=== PATIENT | female | born 1955 | race Caucasian/White ===

== ENCOUNTER → 2017-03-03 | Outpatient (CLI) | payer BC | END | disposition home or self-care (01) | LOC: RAD 12:44 | DX: M06.9 Rheumatoid arthritis, unspecified (principal) | CPT/HCPCS: 73110; 73110-RT; 73130-RT ==

== ENCOUNTER → 2017-03-23 | Outpatient (CLI) | payer BC ==
[2017-03-23 18:23] LABS: ADD MAN DIFF? NO
[2017-03-23 18:27] LABS: WHITE BLOOD COUNT 6.8 10^3/ul (4.8-10.8)
[2017-03-23 18:27] LABS: BASOPHILS % 0.6 % (0.0-2.0); EOSINOPHILS # 0.1 10^3/ul (0.0-0.5); EOSINOPHILS % 2.1 % (0.0-7.0); HEMATOCRIT 42.6 % (37.0-47.0); HEMOGLOBIN 14.7 g/dl (12.0-16.0); LYMPHOCYTES # 2.7 10^3/ul (0.8-2.9); LYMPHOCYTES % 39.4 % (15.0-51.0); MEAN CORPUSCULAR HEMOGLOBIN 31.4 pg (29.0-33.0); MEAN CORPUSCULAR HGB CONC 34.5 g/dl (32.0-37.0); MONOCYTE # 0.5 10^3/ul (0.3-0.9); MONOCYTES % 7.5 % (0.0-11.0); NEUTROPHIL # 3.4 10^3/ul (1.6-7.5); NEUTROPHILS % 50.1 % (39.0-77.0); PLATELET COUNT 266 10^3/UL (140-415); RED BLOOD COUNT 4.68 10^6/ul (4.20-5.40); RED CELL DISTRIBUTION WIDTH 11.9 % (11.5-14.5)
[2017-03-23 18:52] LABS: ALANINE AMINOTRANSFERASE 41 IU/L (13-69); ALBUMIN 4.5 g/dl (3.3-4.9); ALKALINE PHOSPHATASE 94 IU/L (42-121); ANION GAP 18 (8-16); ASPARTATE AMINO TRANSFERASE 26 IU/L (15-46); BILIRUBIN,INDIRECT 0.5 mg/dl (0-1.1); BILIRUBIN,TOTAL 0.5 mg/dl (0.2-1.3); BLOOD UREA NITROGEN 13 mg/dl (7-20); C-REACTIVE PROTEIN 0.8 mg/dl (0.0-0.9); CALCIUM 9.4 mg/dl (8.4-10.2); CARBON DIOXIDE 22 mmol/L (21-31); CHLORIDE 106 mmol/L (97-110); CREATININE 0.77 mg/dl (0.44-1.00); GLUCOSE 105 mg/dl (70-220); SODIUM 142 mmol/L (135-144); TOTAL PROTEIN 7.3 g/dl (6.1-8.1)
[2017-03-23 19:34] LABS: ERYTHROCYTE SEDIMENTATION RATE 4 mm/Hr (0-30)
== END | disposition home or self-care (01) ==
LOC: LAB 17:51
DX: L40.50 Arthropathic psoriasis, unspecified (principal)
CPT/HCPCS: 80053; 85025; 85651; 86140

== ENCOUNTER 2017-03-28 14:56 | Observation (INO) | payer BC ==
[2017-03-28] MEDS: INFLIXIMAB 300 MG in SOD CHLORIDE 0.9% 300 ML IV (16:03)
== END 2017-03-28 19:10 | disposition home or self-care (01) ==
LOC: MS1 14:56
DX: L40.50 Arthropathic psoriasis, unspecified (principal)
CPT/HCPCS: G0378

== ENCOUNTER 2017-05-23 13:31 | Observation (INO) | payer BC ==
[2017-05-23] MEDS: INFLIXIMAB 300 MG in SOD CHLORIDE 0.9% 300 ML IV (15:40)
== END 2017-05-23 18:45 | disposition home or self-care (01) ==
LOC: MS1 13:31
DX: L40.50 Arthropathic psoriasis, unspecified (principal)
CPT/HCPCS: 99217

== ENCOUNTER → 2017-06-25 | Outpatient (CLI) | payer BC ==
[2017-06-25 14:27] LABS: ADD MAN DIFF? NO
[2017-06-25 14:53] LABS: ALANINE AMINOTRANSFERASE 38 IU/L (13-69); ALBUMIN 4.6 g/dl (3.3-4.9); ALBUMIN/GLOBULIN RATIO 1.48; ALKALINE PHOSPHATASE 97 IU/L (42-121); ANION GAP 15 (8-16); ASPARTATE AMINO TRANSFERASE 26 IU/L (15-46); BILIRUBIN,INDIRECT 0.4 mg/dl (0-1.1); BILIRUBIN,TOTAL 0.4 mg/dl (0.2-1.3); BLOOD UREA NITROGEN 19 mg/dl (7-20); C-REACTIVE PROTEIN 0.9 mg/dl (0.0-0.9); CALCIUM 9.4 mg/dl (8.4-10.2); CARBON DIOXIDE 27 mmol/L (21-31); CHLORIDE 108 mmol/L (97-110); CREATININE 0.82 mg/dl (0.44-1.00); GLUCOSE 143 mg/dl (70-220); POTASSIUM 4.2 mmol/L (3.5-5.1); SODIUM 146 mmol/L (135-144); TOTAL PROTEIN 7.7 g/dl (6.1-8.1)
[2017-06-25 15:32] LABS: ERYTHROCYTE SEDIMENTATION RATE 10 mm/Hr (0-30)
[2017-06-25 15:39] LABS: WHITE BLOOD COUNT 7.4 10^3/ul (4.8-10.8)
[2017-06-25 15:39] LABS: BASOPHIL # 0.1 10^3/ul (0.0-0.1); BASOPHILS % 0.7 % (0.0-2.0); EOSINOPHILS # 0.2 10^3/ul (0.0-0.5); EOSINOPHILS % 2.6 % (0.0-7.0); HEMOGLOBIN 15.1 g/dl (12.0-16.0); LYMPHOCYTES # 2.7 10^3/ul (0.8-2.9); LYMPHOCYTES % 36.2 % (15.0-51.0); MEAN CORPUSCULAR HEMOGLOBIN 30.8 pg (29.0-33.0); MEAN CORPUSCULAR HGB CONC 34.3 g/dl (32.0-37.0); MEAN CORPUSCULAR VOLUME 89.6 fl (82.0-101.0); MEAN PLATELET VOLUME 9.7 fl (7.4-10.4); MONOCYTE # 0.6 10^3/ul (0.3-0.9); MONOCYTES % 7.5 % (0.0-11.0); NEUTROPHIL # 3.9 10^3/ul (1.6-7.5); NEUTROPHILS % 52.7 % (39.0-77.0); PLATELET COUNT 267 10^3/UL (140-415); RED BLOOD COUNT 4.91 10^6/ul (4.20-5.40); RED CELL DISTRIBUTION WIDTH 12.3 % (11.5-14.5)
== END | disposition home or self-care (01) ==
LOC: LAB 13:31
DX: L40.50 Arthropathic psoriasis, unspecified (principal)
CPT/HCPCS: 80053; 82306; 85025; 85651; 86140

== ENCOUNTER → 2017-07-07 | Outpatient (CLI) | payer BC | END | disposition home or self-care (01) | LOC: RAD 12:44 | DX: J18.9 Pneumonia, unspecified organism (principal) | CPT/HCPCS: 71046 ==

== ENCOUNTER 2017-07-15 12:04 | Inpatient (IN) | payer BC ==
[2017-07-15] MEDS ORDERED: ACETAMINOPHEN 325 MG TAB PO (12:30)
[2017-07-15] MEDS ORDERED: ONDANSETRON 4 MG INJ IV ×2 (12:30→14:30)
[2017-07-15 13:01] LABS: ADD MAN DIFF? NO
[2017-07-15 13:06] LABS: BASOPHIL # 0.1 10^3/ul (0.0-0.1); BASOPHILS % 0.9 % (0.0-2.0); EOSINOPHILS # 0.2 10^3/ul (0.0-0.5); EOSINOPHILS % 2.2 % (0.0-7.0); HEMATOCRIT 42.3 % (37.0-47.0); HEMOGLOBIN 14.5 g/dl (12.0-16.0); LYMPHOCYTES # 2.7 10^3/ul (0.8-2.9); LYMPHOCYTES % 36.4 % (15.0-51.0); MEAN CORPUSCULAR HEMOGLOBIN 30.8 pg (29.0-33.0); MEAN CORPUSCULAR HGB CONC 34.3 g/dl (32.0-37.0); MEAN CORPUSCULAR VOLUME 89.8 fl (82.0-101.0); MEAN PLATELET VOLUME 9.4 fl (7.4-10.4); MONOCYTE # 0.5 10^3/ul (0.3-0.9); MONOCYTES % 7.2 % (0.0-11.0); NEUTROPHIL # 3.9 10^3/ul (1.6-7.5); NEUTROPHILS % 53.2 % (39.0-77.0); PLATELET COUNT 255 10^3/UL (140-415); RED BLOOD COUNT 4.71 10^6/ul (4.20-5.40); RED CELL DISTRIBUTION WIDTH 12.5 % (11.5-14.5)
[2017-07-15 13:06] LABS: WHITE BLOOD COUNT 7.4 10^3/ul (4.8-10.8)
[2017-07-15 13:26] LABS: ANION GAP 16 (8-16); BLOOD UREA NITROGEN 14 mg/dl (7-20); CALCIUM 9.8 mg/dl (8.4-10.2); CARBON DIOXIDE 21 mmol/L (21-31); CHLORIDE 111 mmol/L (97-110); CREATININE 0.84 mg/dl (0.44-1.00); GLUCOSE 110 mg/dl (70-220); POTASSIUM 3.9 mmol/L (3.5-5.1); SODIUM 144 mmol/L (135-144)
[2017-07-15 13:27] LABS: LACTIC ACID 1.8 mmol/L (0.5-2.0)
[2017-07-15] MEDS: LEVOFLOXACIN 500MG/D5W (PMX) 100 ML IV (13:29)
[2017-07-15] MEDS: IPRATROPIUM (NEB) 0.5 MG/2.5 ML AMP HHN (13:43)
[2017-07-15] MEDS: ALBUTEROL 0.083% (NEB) 2.5 MG/3 ML AMP HHN ×4 (13:43→23:58)
[2017-07-15] MEDS ORDERED: ZOLPIDEM 5 MG TAB PO (14:30)
[2017-07-15] MEDS ORDERED: DOCUSATE SODIUM 100 MG CAP PO (14:30)
[2017-07-15] MEDS ORDERED: NACL 0.9% 3 ML SYG IV (14:30)
[2017-07-15] MEDS: DEXTROSE 5%-0.45% NACL 1,000 ML IV (16:00)
[2017-07-15] MEDS: LEVOFLOXACIN 500MG/D5W (PMX) 100 ML IVPB (16:00)
[2017-07-15] MEDS: METHYLPREDNISOLONE 40 MG INJ IV (21:34)
[2017-07-15] MEDS ORDERED: ALBUTEROL 0.083% (NEB) 2.5 MG/3 ML AMP HHN (22:00)
[2017-07-15 23:11] LABS: LACTIC ACID 3.3 mmol/L (0.5-2.0)
[2017-07-16] MEDS: DEXTROSE 5%-0.45% NACL 1,000 ML IV (03:30)
[2017-07-16] MEDS: ALBUTEROL 0.083% (NEB) 2.5 MG/3 ML AMP HHN ×5 (05:26→20:53)
[2017-07-16] MEDS: PANTOPRAZOLE (EC) 40 MG TAB PO (05:50)
[2017-07-16] MEDS: METHYLPREDNISOLONE 40 MG INJ IV ×3 (05:50→22:03)
[2017-07-16 06:01] LABS: ADD MAN DIFF? NO
[2017-07-16 06:06] LABS: WHITE BLOOD COUNT 6.2 10^3/ul (4.8-10.8)
[2017-07-16 06:06] LABS: BASOPHILS % 0.2 % (0.0-2.0); HEMATOCRIT 43.9 % (37.0-47.0); HEMOGLOBIN 14.7 g/dl (12.0-16.0); LYMPHOCYTES # 0.8 10^3/ul (0.8-2.9); LYMPHOCYTES % 12.7 % (15.0-51.0); MEAN CORPUSCULAR HEMOGLOBIN 30.6 pg (29.0-33.0); MEAN CORPUSCULAR HGB CONC 33.5 g/dl (32.0-37.0); MEAN CORPUSCULAR VOLUME 91.5 fl (82.0-101.0); MEAN PLATELET VOLUME 9.3 fl (7.4-10.4); MONOCYTE # 0.1 10^3/ul (0.3-0.9); MONOCYTES % 0.8 % (0.0-11.0); NEUTROPHIL # 5.3 10^3/ul (1.6-7.5); NEUTROPHILS % 85.7 % (39.0-77.0); PLATELET COUNT 255 10^3/UL (140-415); RED CELL DISTRIBUTION WIDTH 12.6 % (11.5-14.5)
[2017-07-16 06:28] LABS: ALANINE AMINOTRANSFERASE 30 IU/L (13-69); ALBUMIN 4.3 g/dl (3.3-4.9); ALBUMIN/GLOBULIN RATIO 1.38; ALKALINE PHOSPHATASE 83 IU/L (42-121); ANION GAP 20 (8-16); ASPARTATE AMINO TRANSFERASE 28 IU/L (15-46); BILIRUBIN,INDIRECT 0.4 mg/dl (0-1.1); BILIRUBIN,TOTAL 0.4 mg/dl (0.2-1.3); BLOOD UREA NITROGEN 6 mg/dl (7-20); CALCIUM 9.8 mg/dl (8.4-10.2); CARBON DIOXIDE 20 mmol/L (21-31); CHLORIDE 112 mmol/L (97-110); CHOL/HDL RATIO 3.5 RATIO; CHOLESTEROL 179 mg/dl (100-200); CREATININE 0.65 mg/dl (0.44-1.00); GLUCOSE 205 mg/dl (70-220); HDL CHOLESTEROL 51 mg/dl (35-98); LDL CHOLESTEROL,CALCULATED 113 mg/dl; MAGNESIUM 1.9 mg/dl (1.7-2.5); POTASSIUM 4.5 mmol/L (3.5-5.1); SODIUM 147 mmol/L (135-144); TOTAL PROTEIN 7.4 g/dl (6.1-8.1); TRIGLYCERIDES 73 mg/dl (0-149)
[2017-07-16] MEDS: ENOXAPARIN 30 MG/0.3 ML SYG SC (09:59)
[2017-07-16] MEDS: SOD CHLORIDE 0.45% 1,000 ML IV (13:49)
[2017-07-16] MEDS: PROMETHAZINE/CODEINE 5ML CUP PO (13:49)
[2017-07-16] MEDS: GUAIFENESIN/DM (SR) TAB PO ×2 (15:02→20:43)
[2017-07-17] MEDS: ALBUTEROL 0.083% (NEB) 2.5 MG/3 ML AMP HHN ×6 (01:00→20:52)
[2017-07-17] MEDS: SOD CHLORIDE 0.45% 1,000 ML IV ×2 (01:15→13:54)
[2017-07-17] MEDS: METHYLPREDNISOLONE 40 MG INJ IV (05:34)
[2017-07-17] MEDS: PANTOPRAZOLE (EC) 40 MG TAB PO (05:34)
[2017-07-17] MEDS: ACETAMINOPHEN 325 MG TAB PO (05:43)
[2017-07-17 06:29] LABS: ADD MAN DIFF? NO
[2017-07-17 06:31] LABS: BASOPHILS % 0.1 % (0.0-2.0); HEMOGLOBIN 13.7 g/dl (12.0-16.0); LYMPHOCYTES # 1.7 10^3/ul (0.8-2.9); LYMPHOCYTES % 9.2 % (15.0-51.0); MEAN CORPUSCULAR HEMOGLOBIN 30.4 pg (29.0-33.0); MEAN CORPUSCULAR HGB CONC 32.6 g/dl (32.0-37.0); MEAN CORPUSCULAR VOLUME 93.1 fl (82.0-101.0); MEAN PLATELET VOLUME 9.5 fl (7.4-10.4); MONOCYTE # 0.6 10^3/ul (0.3-0.9); MONOCYTES % 3.3 % (0.0-11.0); NEUTROPHIL # 15.8 10^3/ul (1.6-7.5); NEUTROPHILS % 86.6 % (39.0-77.0); PLATELET COUNT 265 10^3/UL (140-415); RED BLOOD COUNT 4.51 10^6/ul (4.20-5.40); RED CELL DISTRIBUTION WIDTH 13.3 % (11.5-14.5)
[2017-07-17 06:31] LABS: WHITE BLOOD COUNT 18.3 10^3/ul (4.8-10.8)
[2017-07-17 07:01] LABS: ANION GAP 16 (8-16); BLOOD UREA NITROGEN 13 mg/dl (7-20); CALCIUM 9.5 mg/dl (8.4-10.2); CARBON DIOXIDE 22 mmol/L (21-31); CHLORIDE 111 mmol/L (97-110); CREATININE 0.77 mg/dl (0.44-1.00); GLUCOSE 189 mg/dl (70-220); POTASSIUM 4.3 mmol/L (3.5-5.1); SODIUM 145 mmol/L (135-144)
[2017-07-17] MEDS: GUAIFENESIN/DM (SR) TAB PO ×2 (10:13→20:58)
[2017-07-17] MEDS: ENOXAPARIN 30 MG/0.3 ML SYG SC (10:15)
[2017-07-18] MEDS: SOD CHLORIDE 0.45% 1,000 ML IV ×2 (00:21→12:56)
[2017-07-18] MEDS: ALBUTEROL 0.083% (NEB) 2.5 MG/3 ML AMP HHN ×4 (01:00→13:06)
[2017-07-18 06:05] LABS: ADD MAN DIFF? NO; BASOPHILS % 0.2 % (0.0-2.0); EOSINOPHILS % 0.2 % (0.0-7.0); HEMATOCRIT 39.3 % (37.0-47.0); HEMOGLOBIN 12.9 g/dl (12.0-16.0); LYMPHOCYTES # 3.6 10^3/ul (0.8-2.9); LYMPHOCYTES % 27.9 % (15.0-51.0); MEAN CORPUSCULAR HEMOGLOBIN 30.6 pg (29.0-33.0); MEAN CORPUSCULAR HGB CONC 32.8 g/dl (32.0-37.0); MEAN CORPUSCULAR VOLUME 93.1 fl (82.0-101.0); MEAN PLATELET VOLUME 9.6 fl (7.4-10.4); MONOCYTE # 0.8 10^3/ul (0.3-0.9); MONOCYTES % 6.2 % (0.0-11.0); NEUTROPHIL # 8.4 10^3/ul (1.6-7.5); NEUTROPHILS % 65.1 % (39.0-77.0); PLATELET COUNT 225 10^3/UL (140-415); RED BLOOD COUNT 4.22 10^6/ul (4.20-5.40); RED CELL DISTRIBUTION WIDTH 13.3 % (11.5-14.5)
[2017-07-18 06:05] LABS: WHITE BLOOD COUNT 12.8 10^3/ul (4.8-10.8)
[2017-07-18] MEDS: PANTOPRAZOLE (EC) 40 MG TAB PO (06:39)
[2017-07-18 06:41] LABS: ANION GAP 10 (8-16); BLOOD UREA NITROGEN 25 mg/dl (7-20); CALCIUM 8.8 mg/dl (8.4-10.2); CARBON DIOXIDE 26 mmol/L (21-31); CHLORIDE 110 mmol/L (97-110); CREATININE 0.86 mg/dl (0.44-1.00); GLUCOSE 114 mg/dl (70-220); POTASSIUM 4.1 mmol/L (3.5-5.1); SODIUM 142 mmol/L (135-144)
[2017-07-18] MEDS: GUAIFENESIN/DM (SR) TAB PO (09:57)
[2017-07-18] MEDS: METHYLPREDNISOLONE 40 MG INJ IV (09:57)
[2017-07-18] MEDS: PROMETHAZINE/CODEINE 5ML CUP PO (09:58)
[2017-07-18] MEDS: ENOXAPARIN 30 MG/0.3 ML SYG SC (10:00)
[2017-07-22 13:26] LABS: PROCALCITONIN <0.10 ng/mL (<0.10)
== END 2017-07-18 18:40 | disposition home or self-care (01) | DRG 203 ==
LOC: E/R 12:04 → MS2 12:09
DX: J20.8 Acute bronchitis due to other specified organisms (principal); L40.50 Arthropathic psoriasis, unspecified; J45.50 Severe persistent asthma, uncomplicated; M06.9 Rheumatoid arthritis, unspecified; Z90.49 Acquired absence of other specified parts of digestive tract
CPT/HCPCS: 36415; 71045; 71250; 80048; 80053; 80061; 83605; 83735; 84145; 85025; 86606; 86635; 87040; 87070; 94640; 94664; 96374; 99285-25

== ENCOUNTER 2017-08-20 20:51 | Emergency (ER) | payer BC ==
[2017-08-20] MEDS: IPRATROPIUM (NEB) 0.5 MG/2.5 ML AMP INH (21:41)
[2017-08-20] MEDS: ALBUTEROL 0.5% (NEB) 2.5 MG/0.5 ML AMP INH (21:41)
[2017-08-20] MEDS: MAGNESIUM SULFATE 2 GM/50 ML 50 ML IVPB (22:15)
[2017-08-20] MEDS: METHYLPREDNISOLONE 125 MG INJ IV (22:15)
[2017-08-20 22:30] LABS: ADD MAN DIFF? NO
[2017-08-20 22:35] LABS: BASOPHIL # 0.1 10^3/ul (0.0-0.1); BASOPHILS % 0.7 % (0.0-2.0); EOSINOPHILS # 0.1 10^3/ul (0.0-0.5); EOSINOPHILS % 1.1 % (0.0-7.0); HEMATOCRIT 41.2 % (37.0-47.0); HEMOGLOBIN 13.9 g/dl (12.0-16.0); LYMPHOCYTES # 4.7 10^3/ul (0.8-2.9); LYMPHOCYTES % 44.3 % (15.0-51.0); MEAN CORPUSCULAR HEMOGLOBIN 31.4 pg (29.0-33.0); MEAN CORPUSCULAR HGB CONC 33.7 g/dl (32.0-37.0); MEAN PLATELET VOLUME 9.3 fl (7.4-10.4); MONOCYTE # 0.7 10^3/ul (0.3-0.9); MONOCYTES % 6.8 % (0.0-11.0); NEUTROPHIL # 4.9 10^3/ul (1.6-7.5); NEUTROPHILS % 46.4 % (39.0-77.0); PLATELET COUNT 244 10^3/UL (140-415); RED BLOOD COUNT 4.43 10^6/ul (4.20-5.40); RED CELL DISTRIBUTION WIDTH 13.1 % (11.5-14.5)
[2017-08-20 22:35] LABS: WHITE BLOOD COUNT 10.6 10^3/ul (4.8-10.8)
[2017-08-20 22:51] LABS: ALANINE AMINOTRANSFERASE 35 IU/L (13-69); ALBUMIN 3.9 g/dl (3.3-4.9); ALBUMIN/GLOBULIN RATIO 1.56; ALKALINE PHOSPHATASE 78 IU/L (42-121); ANION GAP 12 (8-16); ASPARTATE AMINO TRANSFERASE 20 IU/L (15-46); BILIRUBIN,INDIRECT 0.6 mg/dl (0-1.1); BILIRUBIN,TOTAL 0.6 mg/dl (0.2-1.3); BLOOD UREA NITROGEN 29 mg/dl (7-20); CARBON DIOXIDE 25 mmol/L (21-31); CHLORIDE 109 mmol/L (97-110); GLUCOSE 95 mg/dl (70-220); LIPASE 196 U/L (23-300); POTASSIUM 3.9 mmol/L (3.5-5.1); SODIUM 142 mmol/L (135-144); TOTAL PROTEIN 6.4 g/dl (6.1-8.1)
== END 2017-08-21 00:22 | disposition home or self-care (01) ==
LOC: FTE 08-21 00:22
DX: R06.2 Wheezing (principal)
CPT/HCPCS: 36415; 71045; 80053; 83690; 85025; 94644; 96374; 96375; 99284-25

== ENCOUNTER → 2017-09-07 | Outpatient (CLI) | payer BC ==
[2017-09-07 18:55] LABS: ADD MAN DIFF? NO
[2017-09-07 19:07] LABS: WHITE BLOOD COUNT 6.6 10^3/ul (4.8-10.8)
[2017-09-07 19:07] LABS: BASOPHIL # 0.1 10^3/ul (0.0-0.1); BASOPHILS % 0.8 % (0.0-2.0); EOSINOPHILS # 0.2 10^3/ul (0.0-0.5); EOSINOPHILS % 3.5 % (0.0-7.0); HEMATOCRIT 41.5 % (37.0-47.0); HEMOGLOBIN 13.9 g/dl (12.0-16.0); LYMPHOCYTES # 2.4 10^3/ul (0.8-2.9); LYMPHOCYTES % 36.3 % (15.0-51.0); MEAN CORPUSCULAR HEMOGLOBIN 31.1 pg (29.0-33.0); MEAN CORPUSCULAR HGB CONC 33.5 g/dl (32.0-37.0); MEAN CORPUSCULAR VOLUME 92.8 fl (82.0-101.0); MEAN PLATELET VOLUME 9.1 fl (7.4-10.4); MONOCYTE # 0.6 10^3/ul (0.3-0.9); MONOCYTES % 8.5 % (0.0-11.0); NEUTROPHIL # 3.4 10^3/ul (1.6-7.5); NEUTROPHILS % 50.7 % (39.0-77.0); PLATELET COUNT 262 10^3/UL (140-415); RED BLOOD COUNT 4.47 10^6/ul (4.20-5.40)
[2017-09-07 19:17] LABS: ALANINE AMINOTRANSFERASE 48 IU/L (13-69); ALBUMIN 4.3 g/dl (3.3-4.9); ALBUMIN/GLOBULIN RATIO 1.43; ALKALINE PHOSPHATASE 89 IU/L (42-121); ANION GAP 13 (8-16); ASPARTATE AMINO TRANSFERASE 27 IU/L (15-46); BILIRUBIN,INDIRECT 0.7 mg/dl (0-1.1); BILIRUBIN,TOTAL 0.7 mg/dl (0.2-1.3); BLOOD UREA NITROGEN 15 mg/dl (7-20); CALCIUM 9.3 mg/dl (8.4-10.2); CARBON DIOXIDE 25 mmol/L (21-31); CHLORIDE 109 mmol/L (97-110); CREATININE 0.71 mg/dl (0.44-1.00); GLUCOSE 94 mg/dl (70-220); POTASSIUM 4.4 mmol/L (3.5-5.1); SODIUM 143 mmol/L (135-144); TOTAL PROTEIN 7.3 g/dl (6.1-8.1)
[2017-09-07 20:05] LABS: ERYTHROCYTE SEDIMENTATION RATE 10 mm/Hr (0-30)
== END | disposition home or self-care (01) ==
LOC: LAB 18:31
DX: L40.50 Arthropathic psoriasis, unspecified (principal)
CPT/HCPCS: 80053; 82306; 85025; 85651; 86140

== ENCOUNTER 2017-09-12 13:22 | Observation (INO) | payer BC ==
[2017-09-12] MEDS: INFLIXIMAB 300 MG in SOD CHLORIDE 0.9% 300 ML IV (15:33)
== END 2017-09-12 21:28 | disposition home or self-care (01) ==
LOC: MS1 13:22
DX: L40.50 Arthropathic psoriasis, unspecified (principal)
CPT/HCPCS: G0378

== ENCOUNTER 2017-10-02 11:55 | Emergency (ER) | payer BC ==
[2017-10-02 12:49] LABS: ADD MAN DIFF? NO
[2017-10-02 12:51] LABS: BASOPHIL # 0.1 10^3/ul (0.0-0.1); BASOPHILS % 0.9 % (0.0-2.0); EOSINOPHILS # 0.2 10^3/ul (0.0-0.5); EOSINOPHILS % 2.5 % (0.0-7.0); HEMATOCRIT 42.7 % (37.0-47.0); HEMOGLOBIN 14.3 g/dl (12.0-16.0); LYMPHOCYTES # 2.7 10^3/ul (0.8-2.9); LYMPHOCYTES % 39.6 % (15.0-51.0); MEAN CORPUSCULAR HEMOGLOBIN 30.6 pg (29.0-33.0); MEAN CORPUSCULAR HGB CONC 33.5 g/dl (32.0-37.0); MEAN CORPUSCULAR VOLUME 91.2 fl (82.0-101.0); MEAN PLATELET VOLUME 9.5 fl (7.4-10.4); MONOCYTE # 0.5 10^3/ul (0.3-0.9); MONOCYTES % 6.9 % (0.0-11.0); NEUTROPHIL # 3.4 10^3/ul (1.6-7.5); PLATELET COUNT 247 10^3/UL (140-415); RED BLOOD COUNT 4.68 10^6/ul (4.20-5.40); RED CELL DISTRIBUTION WIDTH 12.8 % (11.5-14.5)
[2017-10-02 12:51] LABS: WHITE BLOOD COUNT 6.8 10^3/ul (4.8-10.8)
[2017-10-02] MEDS: MECLIZINE 12.5 MG TAB PO (12:51)
[2017-10-02] MEDS: ONDANSETRON 4 MG INJ IV (12:52)
[2017-10-02] MEDS: SOD CHLORIDE 0.9% 1,000 ML IV (12:52)
[2017-10-02 13:09] LABS: ANION GAP 12 (8-16); BLOOD UREA NITROGEN 11 mg/dl (7-20); CALCIUM 9.3 mg/dl (8.4-10.2); CARBON DIOXIDE 22 mmol/L (21-31); CHLORIDE 114 mmol/L (97-110); CREATININE 0.66 mg/dl (0.44-1.00); GLUCOSE 93 mg/dl (70-220); SODIUM 144 mmol/L (135-144)
[2017-10-02 13:11] LABS: PROTIME 12.2 Sec (11.9-14.9)
[2017-10-02 13:21] LABS: TROPONIN-I < 0.010 ng/ml (0.000-0.120)
[2017-10-02 15:36] LABS: ADD UMIC YES; UR ASCORBIC ACID NEGATIVE (NEGATIVE); UR BILIRUBIN (Dip) NEGATIVE (NEGATIVE); UR BLOOD (Dip) NEGATIVE (NEGATIVE); UR CLARITY CLEAR (CLEAR); UR COLOR YELLOW (YELLOW); UR GLUCOSE (Dip) NEGATIVE (NEGATIVE); UR KETONES (Dip) NEGATIVE (NEGATIVE); UR LEUKOCYTE ESTERASE (Dip) 1+ Leu/ul (NEGATIVE); UR MUCUS MODERATE /HPF (NONE SEEN); UR NITRITE (Dip) NEGATIVE (NEGATIVE); UR RBC 1 /HPF (0-5); UR SPECIFIC GRAVITY (Dip) 1.018 (1.003-1.030); UR SQUAMOUS EPITHELIAL CELL FEW /HPF (FEW); UR TOTAL PROTEIN (Dip) NEGATIVE (NEGATIVE); UR UROBILINOGEN (Dip) NEGATIVE (NEGATIVE); UR WBC 8 /HPF (0-5)
== END 2017-10-02 18:11 | disposition home or self-care (01) ==
LOC: E/R 11:55
DX: R42 Dizziness and giddiness (principal); R40.2252 Coma scale, best verbal response, oriented, at arrival to emergency department; R11.2 Nausea with vomiting, unspecified; R19.7 Diarrhea, unspecified; R10.9 Unspecified abdominal pain; R40.2142 Coma scale, eyes open, spontaneous, at arrival to emergency department; R40.2362 Coma scale, best motor response, obeys commands, at arrival to emergency department
CPT/HCPCS: 36415; 71045; 80048; 81001; 84484; 85025; 85610; 93005; 96374; 99285-25

== ENCOUNTER 2017-10-24 13:44 | Observation (INO) | payer BC ==
[~2017-10-24 13:44] MED LIST: INFLIXIMAB 300 MG in SOD CHLORIDE 0.9% 300 ML IV
[2017-10-24] MEDS: INFLIXIMAB 300 MG in SOD CHLORIDE 0.9% 300 ML IV (15:44)
== END 2017-10-24 19:00 | disposition home or self-care (01) ==
LOC: MS1 13:44
DX: L40.50 Arthropathic psoriasis, unspecified (principal)
CPT/HCPCS: G0378

== ENCOUNTER → 2017-12-01 | Outpatient (CLI) | payer BC ==
[2017-12-01 16:29] LABS: ADD MAN DIFF? NO
[2017-12-01 16:31] LABS: BASOPHILS % 0.6 % (0.0-2.0); EOSINOPHILS # 0.1 10^3/ul (0.0-0.5); EOSINOPHILS % 1.7 % (0.0-7.0); HEMATOCRIT 45.1 % (37.0-47.0); LYMPHOCYTES # 2.3 10^3/ul (0.8-2.9); LYMPHOCYTES % 31.4 % (15.0-51.0); MEAN CORPUSCULAR HEMOGLOBIN 30.6 pg (29.0-33.0); MEAN CORPUSCULAR HGB CONC 33.3 g/dl (32.0-37.0); MEAN PLATELET VOLUME 9.3 fl (7.4-10.4); MONOCYTE # 0.4 10^3/ul (0.3-0.9); NEUTROPHIL # 4.3 10^3/ul (1.6-7.5); NEUTROPHILS % 60.2 % (39.0-77.0); PLATELET COUNT 280 10^3/UL (140-415); RED CELL DISTRIBUTION WIDTH 11.9 % (11.5-14.5)
[2017-12-01 16:31] LABS: WHITE BLOOD COUNT 7.2 10^3/ul (4.8-10.8)
[2017-12-01 16:49] LABS: ALANINE AMINOTRANSFERASE 42 IU/L (13-69); ALBUMIN 4.1 g/dl (3.3-4.9); ALKALINE PHOSPHATASE 94 IU/L (42-121); ANION GAP 13 (8-16); ASPARTATE AMINO TRANSFERASE 31 IU/L (15-46); BILIRUBIN,INDIRECT 0.6 mg/dl (0-1.1); BILIRUBIN,TOTAL 0.6 mg/dl (0.2-1.3); BLOOD UREA NITROGEN 13 mg/dl (7-20); CARBON DIOXIDE 27 mmol/L (21-31); CHLORIDE 106 mmol/L (97-110); CREATININE 0.75 mg/dl (0.44-1.00); GLUCOSE 94 mg/dl (70-220); POTASSIUM 4.1 mmol/L (3.5-5.1); SODIUM 142 mmol/L (135-144); TOTAL PROTEIN 7.5 g/dl (6.1-8.1)
[2017-12-01 17:17] LABS: C-REACTIVE PROTEIN HIGH SENSI 0.17 mg/dl (0.00-0.74)
[2017-12-01 17:40] LABS: ERYTHROCYTE SEDIMENTATION RATE 4 mm/Hr (0-30)
== END | disposition home or self-care (01) ==
LOC: LAB 16:05
DX: L40.50 Arthropathic psoriasis, unspecified (principal)
CPT/HCPCS: 80053; 82306; 85025; 85651; 86140

== ENCOUNTER → 2017-12-04 | Outpatient (CLI) | payer BC ==
[~2017-12-04] MED LIST changes: +ALBUTEROL 0.083% (NEB) 2.5 MG/3 ML AMP; -INFLIXIMAB 300 MG in SOD CHLORIDE 0.9% 300 ML IV
== END | disposition home or self-care (01) ==
LOC: PUL 12:50
DX: J45.909 Unspecified asthma, uncomplicated (principal)
CPT/HCPCS: 94060; 94664; 94726; 94729

== ENCOUNTER 2017-12-05 13:35 | Observation (INO) | payer BC ==
[2017-12-05] MEDS: INFLIXIMAB 300 MG in SOD CHLORIDE 0.9% 300 ML IV (15:39)
== END 2017-12-05 19:30 | disposition home or self-care (01) ==
LOC: MS1 13:35
DX: L40.50 Arthropathic psoriasis, unspecified (principal)
CPT/HCPCS: G0378

== ENCOUNTER → 2017-12-07 | Outpatient (CLI) | payer BC ==
[2017-12-07 13:53] LABS: ADD MAN DIFF? NO
[2017-12-07 13:56] LABS: BASOPHILS % 0.4 % (0.0-2.0); EOSINOPHILS # 0.1 10^3/ul (0.0-0.5); EOSINOPHILS % 0.7 % (0.0-7.0); HEMATOCRIT 44.7 % (37.0-47.0); HEMOGLOBIN 15.3 g/dl (12.0-16.0); LYMPHOCYTES # 1.9 10^3/ul (0.8-2.9); LYMPHOCYTES % 19.2 % (15.0-51.0); MEAN CORPUSCULAR HGB CONC 34.2 g/dl (32.0-37.0); MEAN CORPUSCULAR VOLUME 90.5 fl (82.0-101.0); MEAN PLATELET VOLUME 9.4 fl (7.4-10.4); MONOCYTE # 0.6 10^3/ul (0.3-0.9); MONOCYTES % 6.5 % (0.0-11.0); NEUTROPHIL # 7.2 10^3/ul (1.6-7.5); NEUTROPHILS % 72.9 % (39.0-77.0); PLATELET COUNT 268 10^3/UL (140-415); RED BLOOD COUNT 4.94 10^6/ul (4.20-5.40); RED CELL DISTRIBUTION WIDTH 11.9 % (11.5-14.5)
[2017-12-07 13:56] LABS: WHITE BLOOD COUNT 9.8 10^3/ul (4.8-10.8)
[2017-12-07 14:13] LABS: ALANINE AMINOTRANSFERASE 32 IU/L (13-69); ALBUMIN 4.6 g/dl (3.3-4.9); ALBUMIN/GLOBULIN RATIO 1.48; ALKALINE PHOSPHATASE 101 IU/L (42-121); AMYLASE 102 U/L (11-123); ANION GAP 11 (8-16); ASPARTATE AMINO TRANSFERASE 25 IU/L (15-46); BILIRUBIN,INDIRECT 0.6 mg/dl (0-1.1); BILIRUBIN,TOTAL 0.6 mg/dl (0.2-1.3); BLOOD UREA NITROGEN 11 mg/dl (7-20); CALCIUM 11.4 mg/dl (8.4-10.2); CARBON DIOXIDE 28 mmol/L (21-31); CHLORIDE 105 mmol/L (97-110); CREATININE 0.68 mg/dl (0.44-1.00); GLUCOSE 106 mg/dl (70-220); LIPASE 58 U/L (23-300); POTASSIUM 4.4 mmol/L (3.5-5.1); SODIUM 140 mmol/L (135-144); TOTAL PROTEIN 7.7 g/dl (6.1-8.1)
== END | disposition home or self-care (01) ==
LOC: LAB 13:15
DX: K29.00 Acute gastritis without bleeding (principal); K85.90 Acute pancreatitis without necrosis or infection, unspecified
CPT/HCPCS: 80053; 82150; 83690; 85025

== ENCOUNTER 2018-01-11 18:05 | Emergency (ER) | payer BC ==
[2018-01-11] MEDS: DIPHTH/TET/ACEL PERTUSS (ADULT) 0.5 ML VIAL IM* (18:47)
== END 2018-01-11 19:34 | disposition home or self-care (01) ==
LOC: FTE 18:05
DX: S61.216A Laceration without foreign body of right little finger without damage to nail, initial encounter (principal); W26.8XXA Contact with other sharp object(s), not elsewhere classified, initial encounter; Y92.9 Unspecified place or not applicable; Z23 Encounter for immunization
CPT/HCPCS: 12001; 90471; 90715; 99283-25

== ENCOUNTER → 2018-01-11 | Outpatient (CLI) | payer BC ==
[2018-01-11 16:38] LABS: ADD MAN DIFF? NO
[2018-01-11 16:41] LABS: BASOPHIL # 0.1 10^3/ul (0.0-0.1); EOSINOPHILS # 0.2 10^3/ul (0.0-0.5); EOSINOPHILS % 3.1 % (0.0-7.0); HEMATOCRIT 45.2 % (37.0-47.0); LYMPHOCYTES # 2.5 10^3/ul (0.8-2.9); LYMPHOCYTES % 41.2 % (15.0-51.0); MEAN CORPUSCULAR HGB CONC 33.2 g/dl (32.0-37.0); MEAN CORPUSCULAR VOLUME 90.4 fl (82.0-101.0); MEAN PLATELET VOLUME 9.2 fl (7.4-10.4); MONOCYTE # 0.4 10^3/ul (0.3-0.9); MONOCYTES % 6.8 % (0.0-11.0); NEUTROPHIL # 2.9 10^3/ul (1.6-7.5); NEUTROPHILS % 47.9 % (39.0-77.0); PLATELET COUNT 273 10^3/UL (140-415); RED CELL DISTRIBUTION WIDTH 12.3 % (11.5-14.5)
[2018-01-11 17:00] LABS: ALANINE AMINOTRANSFERASE 36 IU/L (13-69); ALBUMIN 4.4 g/dl (3.3-4.9); ALBUMIN/GLOBULIN RATIO 1.41; ALKALINE PHOSPHATASE 96 IU/L (42-121); ANION GAP 10 (5-13); ASPARTATE AMINO TRANSFERASE 26 IU/L (15-46); BILIRUBIN,INDIRECT 0.8 mg/dl (0-1.1); BILIRUBIN,TOTAL 0.8 mg/dl (0.2-1.3); BLOOD UREA NITROGEN 15 mg/dl (7-20); CALCIUM 9.6 mg/dl (8.4-10.2); CARBON DIOXIDE 24 mmol/L (21-31); CHLORIDE 107 mmol/L (97-110); CREATININE 0.74 mg/dl (0.44-1.00); Estimated GFR > 60 mL/min (>60); GLUCOSE 94 mg/dl (70-220); POTASSIUM 4.3 mmol/L (3.5-5.1); SODIUM 141 mmol/L (135-144); TOTAL PROTEIN 7.5 g/dl (6.1-8.1)
[2018-01-11 17:03] LABS: C-REACTIVE PROTEIN < 0.5 mg/dl (0.0-0.9)
[2018-01-11 17:50] LABS: ERYTHROCYTE SEDIMENTATION RATE 5 mm/Hr (0-30)
== END | disposition home or self-care (01) ==
LOC: LAB 15:49
DX: L40.50 Arthropathic psoriasis, unspecified (principal)
CPT/HCPCS: 80053; 85025; 85651; 86140

== ENCOUNTER 2018-01-16 13:46 | Observation (INO) | payer BC ==
[2018-01-16] MEDS: INFLIXIMAB 300 MG in SOD CHLORIDE 0.9% 300 ML IV (16:09)
== END 2018-01-16 19:30 | disposition home or self-care (01) ==
LOC: MS1 13:46
DX: L40.50 Arthropathic psoriasis, unspecified (principal)
CPT/HCPCS: G0378

== ENCOUNTER → 2018-02-09 | Outpatient (CLI) | payer BC | END | disposition home or self-care (01) | LOC: RAD 17:53 | DX: M13.831 Other specified arthritis, right wrist (principal) | CPT/HCPCS: 73110; 73110-RT ==

== ENCOUNTER → 2018-02-18 | Outpatient (CLI) | payer BC | END | disposition home or self-care (01) | LOC: RAD 17:55 | DX: M47.892 Other spondylosis, cervical region (principal) | CPT/HCPCS: 72040 ==

== ENCOUNTER → 2018-04-06 | Outpatient (CLI) | payer BC ==
[2018-04-06 20:07] LABS: ADD MAN DIFF? NO
[2018-04-06 20:10] LABS: BASOPHIL # 0.1 10^3/ul (0.0-0.1); BASOPHILS % 0.8 % (0.0-2.0); EOSINOPHILS # 0.2 10^3/ul (0.0-0.5); EOSINOPHILS % 3.1 % (0.0-7.0); HEMATOCRIT 44.1 % (37.0-47.0); HEMOGLOBIN 14.9 g/dl (12.0-16.0); LYMPHOCYTES # 3.1 10^3/ul (0.8-2.9); LYMPHOCYTES % 40.9 % (15.0-51.0); MEAN CORPUSCULAR HEMOGLOBIN 30.8 pg (29.0-33.0); MEAN CORPUSCULAR HGB CONC 33.8 g/dl (32.0-37.0); MEAN CORPUSCULAR VOLUME 91.1 fl (82.0-101.0); MEAN PLATELET VOLUME 9.2 fl (7.4-10.4); MONOCYTE # 0.4 10^3/ul (0.3-0.9); MONOCYTES % 5.1 % (0.0-11.0); NEUTROPHIL # 3.7 10^3/ul (1.6-7.5); NEUTROPHILS % 49.8 % (39.0-77.0); PLATELET COUNT 283 10^3/UL (140-415); RED BLOOD COUNT 4.84 10^6/ul (4.20-5.40); RED CELL DISTRIBUTION WIDTH 12.4 % (11.5-14.5)
[2018-04-06 20:10] LABS: WHITE BLOOD COUNT 7.5 10^3/ul (4.8-10.8)
[2018-04-06 20:31] LABS: ALANINE AMINOTRANSFERASE 27 IU/L (13-69); ALBUMIN 4.6 g/dl (3.3-4.9); ALBUMIN/GLOBULIN RATIO 1.31; ALKALINE PHOSPHATASE 126 IU/L (42-121); ANION GAP 12 (5-13); ASPARTATE AMINO TRANSFERASE 24 IU/L (15-46); BILIRUBIN,INDIRECT 0.1 mg/dl (0-1.1); BILIRUBIN,TOTAL 0.1 mg/dl (0.2-1.3); BLOOD UREA NITROGEN 17 mg/dl (7-20); C-REACTIVE PROTEIN < 0.5 mg/dl (0.0-0.9); CALCIUM 9.8 mg/dl (8.4-10.2); CARBON DIOXIDE 25 mmol/L (21-31); CHLORIDE 105 mmol/L (97-110); CREATININE 0.72 mg/dl (0.44-1.00); Estimated GFR > 60 mL/min (>60); GLUCOSE 101 mg/dl (70-220); POTASSIUM 4.2 mmol/L (3.5-5.1); SODIUM 142 mmol/L (135-144); TOTAL PROTEIN 8.1 g/dl (6.1-8.1)
[2018-04-06 21:16] LABS: ERYTHROCYTE SEDIMENTATION RATE 7 mm/Hr (0-30)
== END | disposition home or self-care (01) ==
LOC: LAB 19:39
DX: L40.50 Arthropathic psoriasis, unspecified (principal)
CPT/HCPCS: 80053; 82306; 85025; 85651; 86140

== ENCOUNTER → 2018-04-13 | Outpatient (CLI) | payer BC | END | disposition home or self-care (01) | LOC: RAD 18:05 | DX: M17.11 Unilateral primary osteoarthritis, right knee (principal) | CPT/HCPCS: 73562; 73562-50 ==

== ENCOUNTER → 2018-04-23 | Outpatient (CLI) | payer BC ==
[2018-04-23 13:45] LABS: ADD MAN DIFF? NO
[2018-04-23 13:49] LABS: BASOPHIL # 0.1 10^3/ul (0.0-0.1); BASOPHILS % 0.8 % (0.0-2.0); EOSINOPHILS # 0.2 10^3/ul (0.0-0.5); EOSINOPHILS % 3.7 % (0.0-7.0); HEMATOCRIT 44.3 % (37.0-47.0); HEMOGLOBIN 14.9 g/dl (12.0-16.0); LYMPHOCYTES # 2.7 10^3/ul (0.8-2.9); MEAN CORPUSCULAR HEMOGLOBIN 30.2 pg (29.0-33.0); MEAN CORPUSCULAR HGB CONC 33.6 g/dl (32.0-37.0); MEAN CORPUSCULAR VOLUME 89.9 fl (82.0-101.0); MONOCYTE # 0.4 10^3/ul (0.3-0.9); MONOCYTES % 6.5 % (0.0-11.0); NEUTROPHIL # 2.8 10^3/ul (1.6-7.5); NEUTROPHILS % 45.7 % (39.0-77.0); PLATELET COUNT 275 10^3/UL (140-415); RED BLOOD COUNT 4.93 10^6/ul (4.20-5.40); RED CELL DISTRIBUTION WIDTH 12.3 % (11.5-14.5)
[2018-04-23 13:49] LABS: WHITE BLOOD COUNT 6.2 10^3/ul (4.8-10.8)
[2018-04-23 13:53] LABS: ADD UMIC YES; UR ASCORBIC ACID NEGATIVE (NEGATIVE); UR BACTERIA FEW /HPF (NONE SEEN); UR BILIRUBIN (Dip) NEGATIVE (NEGATIVE); UR BLOOD (Dip) NEGATIVE (NEGATIVE); UR CLARITY CLEAR (CLEAR); UR COLOR YELLOW (YELLOW); UR GLUCOSE (Dip) NEGATIVE (NEGATIVE); UR KETONES (Dip) NEGATIVE (NEGATIVE); UR LEUKOCYTE ESTERASE (Dip) 2+ Leu/ul (NEGATIVE); UR MUCUS FEW /HPF (NONE SEEN); UR NITRITE (Dip) NEGATIVE (NEGATIVE); UR RBC 1 /HPF (0-5); UR TOTAL PROTEIN (Dip) NEGATIVE (NEGATIVE); UR UROBILINOGEN (Dip) NEGATIVE (NEGATIVE); UR WBC 6 /HPF (0-5)
[2018-04-23 14:07] LABS: ALANINE AMINOTRANSFERASE 28 IU/L (13-69); ALBUMIN 4.4 g/dl (3.3-4.9); ALBUMIN/GLOBULIN RATIO 1.29; ALKALINE PHOSPHATASE 82 IU/L (42-121); ANION GAP 10 (5-13); ASPARTATE AMINO TRANSFERASE 25 IU/L (15-46); BILIRUBIN,INDIRECT 0.6 mg/dl (0-1.1); BILIRUBIN,TOTAL 0.6 mg/dl (0.2-1.3); BLOOD UREA NITROGEN 13 mg/dl (7-20); CALCIUM 9.6 mg/dl (8.4-10.2); CARBON DIOXIDE 26 mmol/L (21-31); CHLORIDE 105 mmol/L (97-110); Estimated GFR > 60 mL/min (>60); GLUCOSE 94 mg/dl (70-220); SODIUM 141 mmol/L (135-144); TOTAL PROTEIN 7.8 g/dl (6.1-8.1)
== END | disposition home or self-care (01) ==
LOC: LAB 12:56
DX: J20.9 Acute bronchitis, unspecified (principal); D64.9 Anemia, unspecified; L40.50 Arthropathic psoriasis, unspecified; R07.89 Other chest pain
CPT/HCPCS: 71046; 80053; 81001; 85025; 93005

== ENCOUNTER 2018-05-03 09:04 | Day surgery (SDC) | payer BC ==
[~2018-05-03 09:04] MED LIST changes: -ALBUTEROL 0.083% (NEB) 2.5 MG/3 ML AMP; +CEFAZOLIN 1 GM INJ; +SEVOFLURANE 15 MIN
[2018-05-03] MEDS ORDERED: MIDAZOLAM 1 MG/ML 2 ML INJ (11:20)
[2018-05-03] MEDS ORDERED: FENTAnyl 50 MCG/ML VIAL ×3 (11:21→13:05)
[2018-05-03] MEDS ORDERED: hydrALAzine 20 MG INJ (12:25)
[2018-05-03] MEDS ORDERED: ONDANSETRON 4 MG INJ (12:44)
[2018-05-03] MEDS ORDERED: METOCLOPRAMIDE 10 MG INJ (12:45)
[2018-05-03] MEDS ORDERED: ETOMIDATE 20 MG INJ (12:47)
[2018-05-03] MEDS ORDERED: LIDOCAINE 2% (SDV) 5 ML INJ (12:47)
[2018-05-03] MEDS ORDERED: PROPOFOL 20 ML (12:47)
[2018-05-03] MEDS: ROPIVACAINE 0.5 % 30 ML VIAL (13:00)
[2018-05-03] MEDS: FENTAnyl 50 MCG/ML VIAL IV ×4 (13:06→13:38)
[2018-05-03] MEDS ORDERED: SOD CHLORIDE 0.9% 1,000 ML IV (13:07)
[2018-05-03] MEDS ORDERED: ONDANSETRON 4 MG INJ IV ×2 (13:30)
[2018-05-03] MEDS ORDERED: METOCLOPRAMIDE 10 MG INJ IV (13:30)
[2018-05-03] MEDS ORDERED: KETOROLAC 30 MG INJ IV (13:30)
[2018-05-03] MEDS ORDERED: DIPHENHYDRAMINE 50 MG INJ IV (13:30)
[2018-05-03] MEDS ORDERED: morphine 2 MG INJ IV (13:30)
[2018-05-03] MEDS ORDERED: OXYCODONE/ACETAMINOPHEN (5/325) TAB PO (13:30)
[2018-05-03] MEDS: OXYCODONE/ACETAMINOPHEN (5/325) TAB PO (14:02)
== END 2018-05-03 17:14 | disposition home or self-care (01) ==
LOC: SDS 09:04
DX: M23.221 Derangement of posterior horn of medial meniscus due to old tear or injury, right knee (principal); M23.251 Derangement of posterior horn of lateral meniscus due to old tear or injury, right knee; M94.261 Chondromalacia, right knee; J45.909 Unspecified asthma, uncomplicated; E66.9 Obesity, unspecified; Z68.30 Body mass index [BMI] 30.0-30.9, adult
CPT/HCPCS: 29880

== ENCOUNTER → 2018-06-28 | Outpatient (CLI) | payer BC ==
[2018-06-28 18:59] LABS: ADD MAN DIFF? NO
[2018-06-28 19:01] LABS: WHITE BLOOD COUNT 4.4 10^3/ul (4.8-10.8)
[2018-06-28 19:01] LABS: BASOPHILS % 0.9 % (0.0-2.0); EOSINOPHILS # 0.1 10^3/ul (0.0-0.5); EOSINOPHILS % 3.2 % (0.0-7.0); HEMATOCRIT 42.9 % (37.0-47.0); HEMOGLOBIN 14.1 g/dl (12.0-16.0); LYMPHOCYTES # 1.9 10^3/ul (0.8-2.9); LYMPHOCYTES % 42.5 % (15.0-51.0); MEAN CORPUSCULAR HGB CONC 32.9 g/dl (32.0-37.0); MEAN CORPUSCULAR VOLUME 91.3 fl (82.0-101.0); MEAN PLATELET VOLUME 9.2 fl (7.4-10.4); MONOCYTE # 0.5 10^3/ul (0.3-0.9); MONOCYTES % 11.4 % (0.0-11.0); NEUTROPHIL # 1.8 10^3/ul (1.6-7.5); NEUTROPHILS % 41.8 % (39.0-77.0); PLATELET COUNT 234 10^3/UL (140-415); RED CELL DISTRIBUTION WIDTH 12.4 % (11.5-14.5)
[2018-06-28 19:24] LABS: ALANINE AMINOTRANSFERASE 36 IU/L (13-69); ALBUMIN 4.4 g/dl (3.3-4.9); ALBUMIN/GLOBULIN RATIO 1.37; ALKALINE PHOSPHATASE 101 IU/L (42-121); ANION GAP 7 (5-13); ASPARTATE AMINO TRANSFERASE 29 IU/L (15-46); BILIRUBIN,INDIRECT 0.4 mg/dl (0-1.1); BILIRUBIN,TOTAL 0.4 mg/dl (0.2-1.3); BLOOD UREA NITROGEN 19 mg/dl (7-20); C-REACTIVE PROTEIN 0.8 mg/dl (0.0-0.9); CALCIUM 9.9 mg/dl (8.4-10.2); CARBON DIOXIDE 26 mmol/L (21-31); CHLORIDE 107 mmol/L (97-110); CREATININE 0.69 mg/dl (0.44-1.00); Estimated GFR > 60 mL/min (>60); GLUCOSE 94 mg/dl (70-220); POTASSIUM 4.3 mmol/L (3.5-5.1); SODIUM 140 mmol/L (135-144); TOTAL PROTEIN 7.6 g/dl (6.1-8.1)
[2018-06-28 20:19] LABS: ERYTHROCYTE SEDIMENTATION RATE 3 mm/Hr (0-30)
== END | disposition home or self-care (01) ==
LOC: LAB 18:38
DX: L40.50 Arthropathic psoriasis, unspecified (principal)
CPT/HCPCS: 80053; 82306; 85025; 85651; 86140

== ENCOUNTER 2018-07-03 13:56 | Observation (INO) | payer BC ==
[2018-07-03] MEDS: INFLIXIMAB 300 MG in SOD CHLORIDE 0.9% 300 ML IV (16:02)
== END 2018-07-03 19:40 | disposition home health service (06) ==
LOC: MS1 13:56 → SDS 07-05 13:56 → MS1 07-05 13:56 → SDS 13:56 → MS1 13:57 → SDS 19:20
DX: L40.50 Arthropathic psoriasis, unspecified (principal)
CPT/HCPCS: G0378

== ENCOUNTER → 2018-08-09 | Outpatient (CLI) | payer BC ==
[2018-08-09 18:54] LABS: ADD MAN DIFF? NO
[2018-08-09 18:58] LABS: BASOPHIL # 0.1 10^3/ul (0.0-0.1); BASOPHILS % 0.8 % (0.0-2.0); EOSINOPHILS # 0.2 10^3/ul (0.0-0.5); EOSINOPHILS % 3.1 % (0.0-7.0); HEMATOCRIT 43.1 % (37.0-47.0); HEMOGLOBIN 14.1 g/dl (12.0-16.0); LYMPHOCYTES # 3.3 10^3/ul (0.8-2.9); LYMPHOCYTES % 43.1 % (15.0-51.0); MEAN CORPUSCULAR HGB CONC 32.7 g/dl (32.0-37.0); MEAN CORPUSCULAR VOLUME 91.7 fl (82.0-101.0); MEAN PLATELET VOLUME 9.3 fl (7.4-10.4); MONOCYTE # 0.5 10^3/ul (0.3-0.9); MONOCYTES % 6.3 % (0.0-11.0); NEUTROPHIL # 3.6 10^3/ul (1.6-7.5); NEUTROPHILS % 46.4 % (39.0-77.0); PLATELET COUNT 266 10^3/UL (140-415); RED CELL DISTRIBUTION WIDTH 12.6 % (11.5-14.5)
[2018-08-09 18:58] LABS: WHITE BLOOD COUNT 7.7 10^3/ul (4.8-10.8)
[2018-08-09 20:04] LABS: ERYTHROCYTE SEDIMENTATION RATE 2 mm/Hr (0-30)
[2018-08-09 21:05] LABS: ALANINE AMINOTRANSFERASE 35 IU/L (13-69); ALBUMIN 4.4 g/dl (3.3-4.9); ALBUMIN/GLOBULIN RATIO 1.33; ALKALINE PHOSPHATASE 88 IU/L (42-121); ANION GAP 9 (5-13); ASPARTATE AMINO TRANSFERASE 27 IU/L (15-46); BILIRUBIN,INDIRECT 0.6 mg/dl (0-1.1); BILIRUBIN,TOTAL 0.6 mg/dl (0.2-1.3); BLOOD UREA NITROGEN 23 mg/dl (7-20); C-REACTIVE PROTEIN 0.6 mg/dl (0.0-0.9); CALCIUM 9.4 mg/dl (8.4-10.2); CARBON DIOXIDE 23 mmol/L (21-31); CHLORIDE 109 mmol/L (97-110); CREATININE 0.84 mg/dl (0.44-1.00); Estimated GFR > 60 mL/min (>60); GLUCOSE 101 mg/dl (70-220); POTASSIUM 4.4 mmol/L (3.5-5.1); SODIUM 141 mmol/L (135-144); TOTAL PROTEIN 7.7 g/dl (6.1-8.1)
== END | disposition home or self-care (01) ==
LOC: LAB 18:30
DX: L40.50 Arthropathic psoriasis, unspecified (principal)
CPT/HCPCS: 80053; 85025; 85651; 86140

== ENCOUNTER 2018-08-14 13:23 | Observation (INO) | payer BC ==
[2018-08-14] MEDS: INFLIXIMAB 300 MG in SOD CHLORIDE 0.9% 300 ML IV (15:36)
== END 2018-08-14 20:00 | disposition home or self-care (01) ==
LOC: MS1 13:23
DX: L40.50 Arthropathic psoriasis, unspecified (principal)
CPT/HCPCS: 99217

== ENCOUNTER → 2018-09-20 | Outpatient (CLI) | payer BC ==
[2018-09-20 18:47] LABS: ADD MAN DIFF? NO
[2018-09-20 18:50] LABS: WHITE BLOOD COUNT 6.9 10^3/ul (4.8-10.8)
[2018-09-20 18:50] LABS: BASOPHILS % 0.6 % (0.0-2.0); EOSINOPHILS # 0.1 10^3/ul (0.0-0.5); HEMATOCRIT 42.2 % (37.0-47.0); LYMPHOCYTES # 2.8 10^3/ul (0.8-2.9); LYMPHOCYTES % 40.5 % (15.0-51.0); MEAN CORPUSCULAR HEMOGLOBIN 30.2 pg (29.0-33.0); MEAN CORPUSCULAR HGB CONC 33.2 g/dl (32.0-37.0); MEAN CORPUSCULAR VOLUME 91.1 fl (82.0-101.0); MEAN PLATELET VOLUME 9.3 fl (7.4-10.4); MONOCYTE # 0.5 10^3/ul (0.3-0.9); MONOCYTES % 6.5 % (0.0-11.0); NEUTROPHIL # 3.5 10^3/ul (1.6-7.5); NEUTROPHILS % 50.3 % (39.0-77.0); PLATELET COUNT 249 10^3/UL (140-415); RED BLOOD COUNT 4.63 10^6/ul (4.20-5.40); RED CELL DISTRIBUTION WIDTH 12.6 % (11.5-14.5)
[2018-09-20 19:11] LABS: ALANINE AMINOTRANSFERASE 26 IU/L (13-69); ALBUMIN 4.4 g/dl (3.3-4.9); ALBUMIN/GLOBULIN RATIO 1.37; ALKALINE PHOSPHATASE 94 IU/L (42-121); ANION GAP 9 (5-13); ASPARTATE AMINO TRANSFERASE 24 IU/L (15-46); BILIRUBIN,INDIRECT 0.4 mg/dl (0-1.1); BILIRUBIN,TOTAL 0.4 mg/dl (0.2-1.3); BLOOD UREA NITROGEN 19 mg/dl (7-20); CALCIUM 9.5 mg/dl (8.4-10.2); CARBON DIOXIDE 25 mmol/L (21-31); CHLORIDE 108 mmol/L (97-110); CREATININE 0.76 mg/dl (0.44-1.00); Estimated GFR > 60 mL/min (>60); GLUCOSE 106 mg/dl (70-220); POTASSIUM 3.9 mmol/L (3.5-5.1); SODIUM 142 mmol/L (135-144); TOTAL PROTEIN 7.6 g/dl (6.1-8.1)
[2018-09-20 19:13] LABS: C-REACTIVE PROTEIN < 0.5 mg/dl (0.0-0.9)
[2018-09-20 19:54] LABS: ERYTHROCYTE SEDIMENTATION RATE 4 mm/Hr (0-30)
== END | disposition home or self-care (01) ==
LOC: LAB 15:20
DX: L40.50 Arthropathic psoriasis, unspecified (principal)
CPT/HCPCS: 80053; 82306; 85025; 85651; 86140

== ENCOUNTER 2018-09-22 15:17 | Day surgery (SDC) | payer BC ==
[2018-09-25] MEDS: INFLIXIMAB 300 MG in SOD CHLORIDE 0.9% 300 ML IV (16:05)
== END 2018-09-25 19:18 | disposition home or self-care (01) ==
LOC: REC 15:17 → MS1 09-25 13:40 → ZBAR 09-25 14:32 → MS1 09-25 14:16 → ZBAR 09-25 19:18
DX: L40.50 Arthropathic psoriasis, unspecified (principal)

== ENCOUNTER 2018-10-30 17:41 | Emergency (ER) | payer BC ==
[2018-10-30] MEDS: CEPHALEXIN 500 MG CAP PO (18:57)
[2018-10-30] MEDS: predniSONE 20 MG TAB PO (19:02)
[2018-10-30] MEDS: RANITIDINE 150 MG TAB PO (19:14)
== END 2018-10-30 19:15 | disposition home or self-care (01) ==
LOC: FTE 17:41
DX: S50.862A Insect bite (nonvenomous) of left forearm, initial encounter (principal); J45.909 Unspecified asthma, uncomplicated; W57.XXXA Bitten or stung by nonvenomous insect and other nonvenomous arthropods, initial encounter; Y92.9 Unspecified place or not applicable
CPT/HCPCS: 99283

== ENCOUNTER → 2018-11-01 | Outpatient (CLI) | payer BC ==
[2018-11-01 18:59] LABS: ADD MAN DIFF? NO
[2018-11-01 19:00] LABS: BASOPHILS % 0.3 % (0.0-2.0); EOSINOPHILS % 0.4 % (0.0-7.0); HEMATOCRIT 44.1 % (37.0-47.0); HEMOGLOBIN 14.4 g/dl (12.0-16.0); LYMPHOCYTES # 4.2 10^3/ul (0.8-2.9); LYMPHOCYTES % 37.8 % (15.0-51.0); MEAN CORPUSCULAR HEMOGLOBIN 30.4 pg (29.0-33.0); MEAN CORPUSCULAR HGB CONC 32.7 g/dl (32.0-37.0); MEAN PLATELET VOLUME 9.3 fl (7.4-10.4); MONOCYTE # 0.7 10^3/ul (0.3-0.9); MONOCYTES % 6.6 % (0.0-11.0); NEUTROPHIL # 6.1 10^3/ul (1.6-7.5); NEUTROPHILS % 54.6 % (39.0-77.0); PLATELET COUNT 282 10^3/UL (140-415); RED BLOOD COUNT 4.74 10^6/ul (4.20-5.40); RED CELL DISTRIBUTION WIDTH 12.8 % (11.5-14.5)
[2018-11-01 19:00] LABS: WHITE BLOOD COUNT 11.1 10^3/ul (4.8-10.8)
[2018-11-01 19:22] LABS: ALANINE AMINOTRANSFERASE 22 IU/L (13-69); ALBUMIN 4.6 g/dl (3.3-4.9); ALBUMIN/GLOBULIN RATIO 1.48; ALKALINE PHOSPHATASE 89 IU/L (42-121); ANION GAP 8 (5-13); ASPARTATE AMINO TRANSFERASE 19 IU/L (15-46); BILIRUBIN,INDIRECT 0.3 mg/dl (0-1.1); BILIRUBIN,TOTAL 0.3 mg/dl (0.2-1.3); BLOOD UREA NITROGEN 29 mg/dl (7-20); C-REACTIVE PROTEIN 0.6 mg/dl (0.0-0.9); CALCIUM 9.7 mg/dl (8.4-10.2); CARBON DIOXIDE 28 mmol/L (21-31); CHLORIDE 104 mmol/L (97-110); CREATININE 0.83 mg/dl (0.44-1.00); Estimated GFR > 60 mL/min (>60); GLUCOSE 95 mg/dl (70-220); POTASSIUM 4.3 mmol/L (3.5-5.1); SODIUM 140 mmol/L (135-144); TOTAL PROTEIN 7.7 g/dl (6.1-8.1)
[2018-11-01 20:16] LABS: ERYTHROCYTE SEDIMENTATION RATE 10 mm/Hr (0-30)
== END | disposition home or self-care (01) ==
LOC: LAB 17:35
DX: L40.50 Arthropathic psoriasis, unspecified (principal)
CPT/HCPCS: 80053; 85025; 85651; 86140